=== PATIENT | female | born 1975 | race Caucasian/White ===

== ENCOUNTER 2019-02-13 18:58 | Emergency (ER) | payer BC ==
[~2019-02-13] VITALS: Ht 167.6 cm; Wt 56.1 kg
[2019-02-13 19:02] VITALS: Ht 167.6 cm; Wt 56.1 kg
[2019-02-13] MEDS ORDERED: KETOROLAC 30 MG INJ IM STA (19:44)
[2019-02-13] MEDS ORDERED: IBUP-1542 PO (20:59)
[2019-02-13 21:09] VITALS: BP 116/71; PULSE 69; RESP 18
--- NOTE | 2019-02-13 23:35 | ERD ---
ER Documentation Chief Complaint Chief Complaint hit her head on a tree @1515; PURDY&neck pain now HPI This is an otherwise healthy 43-year-old woman complaining of headache and posterior neck pain after striking her forehead against a large overhanging tree branch. She states she has had some dizziness since the head injury but denies loss of consciousness, no nausea or vomiting, no blurry vision, no weakness in her arms or legs, no difficulty ambulating. ROS All systems reviewed and are negative except as per history of present illness. Medications Home Meds Active Scripts Ibuprofen* (Motrin*) 600 Mg Tab, 600 MG PO Q8 PRN for PAIN AND/OR INFLAMMATION, #30 TAB Prov:AMY BAUM MD 02/13/19 Allergies Allergies: Coded Allergies: No Known Allergy (Unverified , 02/13/19) PMhx/Soc Medical and Surgical Hx: pt denies Medical Hx, pt denies Surgical Hx History of Surgery: No Anesthesia Reaction: No Hx Neurological Disorder: No Hx Respiratory Disorders: No Hx Cardiac Disorders: No Hx Psychiatric Problems: No Hx Miscellaneous Medical Probl: No Hx Alcohol Use: No Hx Substance Use: No Hx Tobacco Use: No Smoking Status: Never smoker Physical Exam Vitals Vital Signs Date Temp Pulse Resp B/P (MAP) Pulse Ox O2 O2 Flow FiO2 Time Delivery Rate 02/13/19 97.8 69 18 116/71 95 Room Air 21:09 (86) 02/13/19 98.6 101 20 126/64 96 19:02 (84) Physical Exam Const: Well-developed well-nourished woman, nontoxic in appearance, afebrile Head: Normocephalic atraumatic, no cervical spine tenderness or step-off deformity Resp: Clear to auscultation bilaterally Cardio: Regular rate and rhythm, no murmurs Skin: No petechiae or rashes Back: No midline or flank tenderness Ext: No cyanosis, or edema, calves symmetrical Neur: Awake and alert x3, no focal deficits or facial asymmetry, gait normal, strength 5/5 in upper and lower extremities bilaterally Psych: Normal Mood and Affect Results 24 hrs Laboratory Tests Test 02/13/19 20:01 POC Beta HCG, Qualitative NEGATIVE Current Medications Medications Dose Sig/Marcial Start Time Status Last (Trade) Ordered Route PRN Stop Time Admin Dose Reason Admin Ketorolac 30 mg ONCE STAT 02/13/19 DC Tromethamine IM 19:44 (Toradol) 02/13/19 19:46 Procedures/MDM Patient's [place] Coma Scale equals 15. I did order Toradol the patient refused analgesics here in the ER. CT scan of the brain was negative for acute bleed mass or shift. CT scan of the cervical spine was negative for acute fracture dislocation. Imaging was unremarkable and patient's pain including her neck pain has improved, vital signs are normal so she can be managed as an outpatient although I did explain and educate her about the symptoms of concussive syndrome. She may require continued outpatient management and possibly further imaging as an outpatient but I will defer that to her PMD. Differential diagnoses considered, included but not limited to acute coronary syndrome, pulmonary embolism, aortic dissection, abdominal aortic aneurysm, sepsis, stroke, meningitis, encephalitis, pneumonia, appendicitis, cholecystitis, bowel obstruction, pyelonephritis, nephrolithiasis, cystitis, as well as metabolic, hematologic, and electrolyte abnormalities. As well as abscess, cellulitis, fractures, and dislocations. Patient feels much better at this time, and vital signs are normal, symptoms have improved. I did give strict instructions to return to the ED if symptoms continue or worsen, patient will otherwise follow-up with primary care physician. Patient understood instructions and agreed to plan. Disclaimer: Inadvertent spelling and grammatical errors are likely due to EHR/ dictation software use and do not reflect on the overall quality of patient care. Also, please note that the electronic time recorded on this note does not necessarily reflect the actual time of the patient encounter. Departure Diagnosis: Primary Impression: Closed head injury Encounter type: initial encounter Qualified Codes: S09.90XA - Unspecified injury of head, initial encounter Additional Impression: Neck strain Encounter type: initial encounter Qualified Codes: S16.1XXA - Strain of muscle, fascia and tendon at neck level, initial encounter Condition: Good Patient Instructions: Concussion, Neck Sprain/Strain AMY BAUM MD Feb 13, 2019 23:35
== END 2019-02-13 21:10 | disposition home or self-care (01) ==
LOC: FTE 18:58
DX: S16.1XXA Strain of muscle, fascia and tendon at neck level, initial encounter (principal); R40.2412 Glasgow coma scale score 13-15, at arrival to emergency department; S09.90XA Unspecified injury of head, initial encounter; R51 Headache; W22.8XXA Striking against or struck by other objects, initial encounter; Y92.9 Unspecified place or not applicable
CPT/HCPCS: 70450; 72125; 81025; J1885